=== PATIENT | female | born 2000 | race Hispanic/Latino ===

== ENCOUNTER 2022-12-12 08:35 | Emergency (ER) | payer OTHER ==
[~2022-12-12] VITALS: Ht 152.4 cm; Wt 65.8 kg
[2022-12-12 10:05] LABS: APPEARANCE,URINE CLEAR (CLEAR); BILIRUBIN,URINE NEGATIVE (NEGATIVE); COLOR,URINE LIGHT-YELLOW (YELLOW); GLUCOSE, URINE (UA) NEGATIVE (NEGATIVE); KETONES,URINE NEGATIVE (NEGATIVE); LEUKOCYTE ESTERASE ,URINE NEGATIVE Leu/uL (NEGATIVE); NITRATE,URINE NEGATIVE (NEGATIVE); OCCULT BLOOD,URINE NEGATIVE (NEGATIVE); PROTEIN,URINE NEGATIVE (NEGATIVE); UROBILINOGEN,URINE 0.2 mg/dL (0.2-1.0)
[2022-12-12] MEDS ORDERED: SODI50DR NS (10:19)
[2022-12-12 10:27] VITALS: BP 112/68
== END 2022-12-12 10:30 | disposition home or self-care (01) ==
LOC: EDH 08:35
DX: O98.511 Other viral diseases complicating pregnancy, first trimester (principal); B34.9 Viral infection, unspecified; Z3A.01 Less than 8 weeks gestation of pregnancy; Z20.822 Contact with and (suspected) exposure to COVID-19
CPT/HCPCS: 99283; 87635; 87804 ×2; 81003; C9803

== ENCOUNTER 2022-12-14 22:42 | Emergency (ER) | payer OTHER ==
[~2022-12-14] VITALS: Ht 152.4 cm; Wt 67.6 kg
[~2022-12-14 22:42] MED LIST: SODI50DR NS
[2022-12-14 23:54] LABS: BASOPHILS % (AUTO) 0.4 % (0.0-5.0); HEMATOCRIT 34.7 % (36-48); LYMPHOCYTES % (AUTO) 20.1 % (21.0-51.0); MEAN CORPUSCULAR HEMOGLOBIN 31.7 pg (27.0-33.0); MEAN CORPUSCULAR HGB CONC 33.7 g/dL (32.0-36.0); MONOCYTES % (AUTO) 7.7 % (3.0-13.0); NEUTROPHILS % (AUTO) 69.2 % (40.0-77.0); PLATELET COUNT (AUTO) 321 K/uL (130-400); RED BLOOD CELL COUNT(AUTO) 3.69 MIL/uL (4.00-5.50); RED CELL DISTRIBUTION WIDTH 12.7 % (11.0-15.5); WHITE BLOOD COUNT (AUTO) 11.5 K/uL (4.8-10.8)
[2022-12-15 00:13] LABS: CREATININE 0.7 mg/dL (0.5-1.5); POTASSIUM 3.8 mmol/L (3.5-5.1)
[2022-12-15 00:39] LABS: ALBUMIN 3.6 g/dL (3.5-5.0)
[2022-12-15 01:01] LABS: BILIRUBIN,URINE NEGATIVE (NEGATIVE); COLOR,URINE LIGHT-YELLOW (YELLOW); GLUCOSE, URINE (UA) NEGATIVE (NEGATIVE); KETONES,URINE NEGATIVE (NEGATIVE); LEUKOCYTE ESTERASE ,URINE 75 Leu/uL (NEGATIVE); NITRATE,URINE NEGATIVE (NEGATIVE); OCCULT BLOOD,URINE MODERATE (NEGATIVE); PROTEIN,URINE 20 mg/dL (NEGATIVE); UROBILINOGEN,URINE 0.2 mg/dL (0.2-1.0)
[2022-12-15] MEDS ORDERED: METO5 PO (01:01)
[2022-12-15] MEDS ORDERED: CEPH500C2 PO (01:01)
[2022-12-15 01:05] LABS: APPEARANCE,URINE CLOUDY (CLEAR)
[2022-12-15 01:08] LABS: BACTERIA,URINE RARE /HPF (None Seen); RBC,URINE 51-100 /HPF (0-1); SQUAMOUS EPITHELIAL CELL,UR RARE /HPF (0-2); WBC,URINE 26-50 /HPF (0-1)
[2022-12-15] MEDS ORDERED: CEPHALEXIN 500 MG CAPSULE PO ONE (02:00)
[2022-12-15 03:18] VITALS: BP 117/73
== END 2022-12-15 03:19 | disposition home or self-care (01) ==
LOC: EDH 22:42
DX: O20.0 Threatened abortion (principal); O23.41 Unspecified infection of urinary tract in pregnancy, first trimester; N39.0 Urinary tract infection, site not specified; Z79.899 Other long term (current) drug therapy; Z3A.01 Less than 8 weeks gestation of pregnancy
CPT/HCPCS: 36415; 76801; 80053; 81001; 81025; 84702; 85025; 86850; 86900; 86901; 87077; 87088; 87186

== ENCOUNTER 2024-11-27 10:07 | Emergency (ER) | payer SELFPAY ==
[~2024-11-27] VITALS: Ht 152.4 cm; Wt 82.6 kg
[~2024-11-27 10:07] MED LIST changes: +CEPH500C2 PO; +METO5 PO
--- NOTE | 2024-11-27 10:14 | ERN ---
ED Note History of Present Illness Stated Complaint: PELVIC PAIN, 7 WEEKS GESTATION Chief Complaint: Pelvic Pain Time Seen by MD: 10:09 Dictation: PATIENT IS A 24-YEAR-OLD FEMALE COMING IN TODAY COMPLAINING OF BE AN SEVEN WEEKS . SHE STATES YESTERDAY AFTERNOON SHE WAS HAVING SOME SPOTTING WITH SOME PELVIC CRAMPING. SHE STATES THAT HAS NOT RESOLVED HOWEVER SHE HAS NOT HAD HER 1ST VISIT AND ULTRASOUND WITH YOVANNY ALVARADO. SHE IS ON VITAMINS. . SHE STATES SHE CURRENTLY IS NOT BLEEDING AT THIS TIME Allergies: Coded Allergies: No Known Drug Allergies (Unverified Allergy, Unknown, 12/12/22) Home Meds Active Scripts Metoclopramide HCl (Reglan) 5 Mg Tab, 5 MG PO TID for 5 Days, #15 TAB Prov:KAYLEE COX 12/15/22 Cephalexin (Cephalexin) 500 Mg Capsule, 500 MG PO TID for 10 Days, #30 CAP Prov:KAYLEE COX 12/15/22 Sodium Chloride (Termo Saline) 50 Ml Drops, 50 ML NS TID for 14 Days, #60 DROP Prov:DAVID FARR MD 12/12/22 Past Medical History Past Medical History: No Pertinent History Surgical History: None : 2 Para: 1 Aborts: 0 RN Note Reviewed/Agreed w/PFSH: Yes Review of System Dictation CONSTITUTIONAL: NEGATIVE EXCEPT FOR HPI HEAD/FACE: NEGATIVE EXCEPT FOR HPI EENT: NEGATIVE EXCEPT FOR HPI RESPIRATORY: NEGATIVE EXCEPT FOR HPI GASTROINTESTINAL/ABDOMINAL: NEGATIVE EXCEPT FOR HPI GENITOURINARY: NEGATIVE EXCEPT FOR HPI MILD PELVIC PAIN MUSCULOSKELETAL: NEGATIVE EXCEPT FOR HPI INTEGUMENTARY: NEGATIVE EXCEPT FOR HPI NEUROLOGICAL/PSYCH: NEGATIVE EXCEPT FOR HPI HEMATOLOGIC/LYMPHATIC: NEGATIVE EXCEPT FOR HPI ALL SYSTEMS NEGATIVE, EXCEPT NOTED ABOVE. 13 POINT REVIEW OF SYSTEMS ASSESSED AND ALL NEGATIVE EXCEPT FOR ABOVE. Initial Vital Sign VS Vital Signs Date Time Temp Pulse Resp B/P (MAP) Pulse Ox O2 Delivery O2 Flow Rate FiO2 11/27/24 10:08 98.6 75 16 121/72 99 Room Air 11/27/24 12:02 0 21 Physical Exam Dictation VITAL SIGNS REVIEWED GENERAL APPEARANCE: ALERT, ORIENTED X 3, NO ACUTE DISTRESS, WELL DEVELOPED, NOURISHED. HEAD AND FACE: NON-TRAUMATIC. EYES: PERRL, PINK CONJUNCTIVAS, EYELID NO TRAUMA, ANTERIOR CHAMBER WITH ARCUS SENILIS. EARS: PINNAS INTACT AND NO SIGNS OF TRAUMA OR ERYTHEMA EAR CANALS CLEAR AND NO DISCHARGE TM NO ERYTHEMA NOSE: NO DISCHARGE, NO BLEEDING. OROPHARYNX: MOUTH NORMAL, TONGUE PINK, PHARYNX CLEAR,NO ERYTHEMA, TONSILS NO EXUDATES, NO ABSCESSES NOTED, MUCOUS MEMBRANE MOIST NECK: SUPPLE, NON-TENDER, NO THYROMEGALY, NO MASSES, NO JVD, NO BRUITS BREAST:DEFERRED CHEST:NO TENDERNESS, NO CREPITUS, NO PARADOXICAL MOVEMENT, NO RETRACTIONS LUNGS:CLEAR, WELL-VENTILATED, SYMMETRIC, NO RALES, NO WHEEZING, NO RHONCHI, NO STRIDOR, GOOD BREATH SOUNDS BILATERALLY HEART: REGULAR RATE, REGULAR RHYTHM, NO MURMUR, NO GALLOPS VASCULAR: NO PERIPHERAL EDEMA, ABDOMEN: SOFT, POSITIVE BOWEL SOUNDS, NONDISTENDED, NO GUARDING, NONTENDER, NO REBOUND, NO MASSES NO HEPATOMEGALY, NO SPLENOMEGALY, NO LAKHANI'S SIGN, NO HERNIAS. RECTAL: DEFERRED GENITAL: DEFERRED NEUROLOGICAL: NORMAL SPEECH, MOTOR FUNCTION INTACT, SENSORY FUNCTION INTACT MUSCULOSKELETAL: NECK NONTENDER, FULL RANGE OF MOTION, BACK NONTENDER, FULL RANGE OF MOTION, EXTREMITIES: NONTENDER, FULL RANGE OF MOTION SKIN: COLOR PINK, DRY, NO TURGOR, NO RASH, NO LACERATIONS, NO ABRASIONS, NO CONTUSIONS. LYMPHATIC: DEFERRED Results (Laboratory/Radiology) Laboratory/Radiology Laboratory Tests Test 11/27/24 11:16 11/27/24 12:40 White Blood Count 6.7 K/uL (4.8-10.8) Red Blood Count 4.21 MIL/uL (4.00-5.50) Hemoglobin 12.9 g/dL (12.0-16.0) Hematocrit 39.1 % (36-48) Mean Corpuscular Volume 92.9 fL (79-99) Mean Corpuscular Hemoglobin 30.6 pg (27.0-33.0) Mean Corpuscular Hemoglobin Concent 33.0 g/dL (32.0-36.0) Red Cell Distribution Width 13.7 % (11.0-15.5) Platelet Count 359 K/uL (130-400) Mean Platelet Volume 10.0 fL (7.5-10.5) Immature Granulocyte % (Auto) 1.0 % (0-1) Neutrophils (%) (Auto) 64.9 % (40.0-77.0) Lymphocytes (%) (Auto) 25.1 % (21.0-51.0) Monocytes (%) (Auto) 6.5 % (3.0-13.0) Eosinophils (%) (Auto) 2.1 % (0.0-8.0) Basophils (%) (Auto) 0.4 % (0.0-5.0) Neutrophils # (Auto) 4.4 K/uL (1.8-7.7) Lymphocytes # (Auto) 1.7 K/uL (1.0-4.8) Monocytes # (Auto) 0.4 K/uL (0.1-1.0) Eosinophils # (Auto) 0.14 K/uL (0.00-0.70) Basophils # (Auto) 0.03 K/uL (0.00-0.20) Absolute Immature Granulocyte (auto 0.07 K/uL (0-1) Nucleated Red Blood Cells 0.0 % (0.0-0.19) Sodium Level 139 mmol/L (136-145) Potassium Level 3.8 mmol/L (3.5-5.1) Chloride Level 105 mmol/L (101-111) Carbon Dioxide Level 29 mmol/L (21-32) Blood Urea Nitrogen 8 mg/dL (7-18) Creatinine 0.4 mg/dL (0.5-1.0) L Glomerular Filtration Rate Calc 140 mL/min (>90) Random Glucose 97 mg/dL (70-105) Total Calcium 8.6 mg/dL (8.5-10.1) Human Chorionic Gonadotropin, Quant 80354 mIU/mL (0-5) H Urine Color YELLOW (YELLOW) Urine Appearance CLOUDY (CLEAR) H Urine pH 8.0 (5.0-8.0) Urine Specific [place] 1.027 (1.001-1.031) Urine Protein 30 mg/dL (NEGATIVE) H Urine Glucose (UA) NEGATIVE mg/dL (NEGATIVE) Urine Ketones NEGATIVE mg/dL (NEGATIVE) Urine Occult Blood NEGATIVE (NEGATIVE) Urine Nitrate NEGATIVE (NEGATIVE) Urine Bilirubin NEGATIVE mg/dL (NEGATIVE) Urine Urobilinogen 0.2 mg/dL (0.2-1.0) Urine Leukocyte Esterase 500 Zia/uL (NEGATIVE) H Urine RBC 2-5 /HPF (0-1) H Urine WBC 26-50 /HPF (0-1) H Urine Squamous Epithelial Cells MANY /HPF (0-2) Urine Bacteria FEW /HPF (None Seen) Exam Type: US OB <14 WEEKS Clinical Information: VAGINAL BLEEDING Comparison: None FINDINGS: There is an intrauterine gestational sac. Gestational sac diameter is 0.80 cm , corresponds to 5 weeks 4 days. No embryonic pole or yolk sac seen at this time. The uterus is anteverted with normal shape. It measures 9.4 x 5 x 6 cm in its maximum length, anteroposterior and transverse dimensions. The myometrium is homogeneous and there is no evidence of focal or diffuse lesions. Both ovaries appear normal with normal flow on color and Spectral Doppler. The right ovary measures 3.6 x 1.8 x 2 cm and the left ovary measures 2.7 x 1.7 x 2.1 cm. No adnexal masses. No free fluid or collections. Urinary bladder appears normal. IMPRESSION: Intrauterine gestational sac, with diameter corresponding to a gestational age of 5 weeks 4 days. No embryonic pole or yolk sac seen at this time. Consider short-term follow-up to confirm viability. Labs Reviewed?: Yes ED Course ED Course Orders Procedure Category Date Status Time Cbc With Differential LAB 11/27/24 Complete 10:11 Hcg,Quantitative LAB 11/27/24 Complete 10:11 Us Ob <14 Weeks US 11/27/24 Resulted 10:11 Type And Screen BBK 11/27/24 Complete 10:11 Basic Metabolic Panel LAB 11/27/24 Complete 10:11 Urinalysis Profile LAB 11/27/24 Complete 10:11 Culture Urine KRISTEN 11/27/24 Logged 12:58 Vital Signs Date Time Temp Pulse Resp B/P (MAP) Pulse Ox O2 Delivery O2 Flow Rate FiO2 11/27/24 12:02 98.4 72 16 120/71 99 Room Air* 0 21 11/27/24 10:08 98.6 75 16 121/72 99 Room Air 1400/PATIENT DISCHARGED HOME WITH EARLY , URINARY TRACT INFECTION. SHE WAS MADE AWARE TO CONTINUE VITAMINS, SEE HER SUPERVISOR VENEER DOCTOR IN THE NEXT 1-2 DAYS AND TAKE ANTIBIOTICS DIRECTED UNTIL GONE. NO [id number] MEDICATIONS EXCEPT FOR TYLENOL. Medical Decision Making MDM MEDICAL DISCHARGE MAKING BASED ON BASIC LABS FOR EARLY TO INCLUDE ULTRASOUND. NO SAC SEEN AT THIS TIME ON ULTRASOUND PATIENT HAS A ACUTE CYSTITIS WITH HEMATURIA DISCHARGED HOME WITH MACRODANTIN AND INSTRUCTIONS TO TAKE TYLENOL ONLY. WATER FOR FLUIDS ONLY UNTIL SHE SEES HER SUPERVISOR VENEER DOCTOR DX & DISP Disposition: Discharge Departure Impression: Primary Impression: UTI in Condition: Stable Scripts Nitrofurantoin/Nitrofuran Mac (Macrobid) 100 Mg Cap 1 CAP PO BID for 7 Days, #14 CAP 0 Refills Prov: RUY BEDOLLA NP 11/27/24 Additional Instructions: FOLLOW-UP WITH PRIMARY CARE PROVIDER IN 1 TO 2 DAYS. TAKE MEDICATIONS DIRECTED HERE IN THE EMERGENCY ROOM. OKAY TO CONTINUE HOME MEDICATIONS UNLESS OTHERWISE DISCUSSED DURING YOUR VISIT IN THE EMERGENCY ROOM TODAY. RETURN TO YOUR NEAREST EMERGENCY ROOM IF SYMPTOMS WORSEN OR IF THERE IS NO IMPROVEMENT. CALL 911 IF YOU NEED IMMEDIATE ASSISTANCE. TAKE TYLENOL [id number] NEEDED AND IF NO CONTRAINDICATIONS ARE PRESENT. INCREASE ORAL HYDRATION. A WOUND CULTURE OR URINE CULTURE WAS ORDERED HERE IN THE EMERGENCY ROOM DEPARTMENT PLEASE FOLLOW-UP WITH PRIMARY CARE PROVIDER AND ADVISE THEM TO GET REPEAT PORTS FROM OUR FACILITY. IF YOU HAD ANY NIDHI WRAP/SPLINTS THAT WERE APPLIED HERE, PLEASE DO NOT REMOVE THEM UNTIL YOU SEE YOUR PRIMARY CARE OR SPECIALTY. PELVIC REST AND NO SEX UNTIL CLEARED BY YOUR SUPERVISOR VENEER DOCTOR. SEE HIM TOMORROW FOR FOLLOW UP. TAKE ANTIBIOTICS DIRECTED UNTIL COMPLETE. Referrals: SELF,REFERRAL (PCP) Time of Disposition: 14:00 I have reviewed the case, and I agree with, Diagnosis and Plan RUY BEDOLLA NP Nov 27, 2024 10:14
--- NOTE | 2024-11-27 10:51 | HMCIMG ---
Exam Type: US OB <14 WEEKS Clinical Information: VAGINAL BLEEDING Comparison: None FINDINGS: There is an intrauterine gestational sac. Gestational sac diameter is 0.80 cm , corresponds to 5 weeks 4 days. No embryonic pole or yolk sac seen at this time. The uterus is anteverted with normal shape. It measures 9.4 x 5 x 6 cm in its maximum length, anteroposterior and transverse dimensions. The myometrium is homogeneous and there is no evidence of focal or diffuse lesions. Both ovaries appear normal with normal flow on color and Spectral Doppler. The right ovary measures 3.6 x 1.8 x 2 cm and the left ovary measures 2.7 x 1.7 x 2.1 cm. No adnexal masses. No free fluid or collections. Urinary bladder appears normal. IMPRESSION: Intrauterine gestational sac, with diameter corresponding to a gestational age of 5 weeks 4 days. No embryonic pole or yolk sac seen at this time. Consider short-term follow-up to confirm viability.
[2024-11-27 11:31] LABS: BASOPHILS # (AUTO) 0.03 K/uL (0.00-0.20); BASOPHILS % (AUTO) 0.4 % (0.0-5.0); EOSINOPHILS # (AUTO) 0.14 K/uL (0.00-0.70); EOSINOPHILS % (AUTO) 2.1 % (0.0-8.0); HEMATOCRIT 39.1 % (36-48); IMMATURE GRANULOCYTE ABSOLUTE 0.07 K/uL (0-1); LYMPHOCYTES # (AUTO) 1.7 K/uL (1.0-4.8); LYMPHOCYTES % (AUTO) 25.1 % (21.0-51.0); MEAN CORPUSCULAR HEMOGLOBIN 30.6 pg (27.0-33.0); MEAN CORPUSCULAR VOLUME 92.9 fL (79-99); MONOCYTES # (AUTO) 0.4 K/uL (0.1-1.0); MONOCYTES % (AUTO) 6.5 % (3.0-13.0); NEUTROPHILS # (AUTO) 4.4 K/uL (1.8-7.7); NEUTROPHILS % (AUTO) 64.9 % (40.0-77.0); PLATELET COUNT (AUTO) 359 K/uL (130-400); RED BLOOD CELL COUNT(AUTO) 4.21 MIL/uL (4.00-5.50); RED CELL DISTRIBUTION WIDTH 13.7 % (11.0-15.5); WHITE BLOOD COUNT (AUTO) 6.7 K/uL (4.8-10.8)
[2024-11-27 11:55] LABS: CREATININE 0.4 mg/dL (0.5-1.0); POTASSIUM 3.8 mmol/L (3.5-5.1)
[2024-11-27 12:56] LABS: APPEARANCE,URINE CLOUDY (CLEAR); BILIRUBIN,URINE NEGATIVE (NEGATIVE); COLOR,URINE YELLOW (YELLOW); GLUCOSE, URINE (UA) NEGATIVE (NEGATIVE); KETONES,URINE NEGATIVE (NEGATIVE); LEUKOCYTE ESTERASE ,URINE 500 Leu/uL (NEGATIVE); NITRATE,URINE NEGATIVE (NEGATIVE); OCCULT BLOOD,URINE NEGATIVE (NEGATIVE); PROTEIN,URINE 30 mg/dL (NEGATIVE); UROBILINOGEN,URINE 0.2 mg/dL (0.2-1.0)
[2024-11-27 12:58] LABS: ADD UA MICROSCOPIC YES
[2024-11-27 13:01] LABS: BACTERIA,URINE FEW /HPF (None Seen); MUCUS,URINE RARE LPF (None Seen); SQUAMOUS EPITHELIAL CELL,UR MANY /HPF (0-2); WBC,URINE 26-50 /HPF (0-1)
[2024-11-27] MEDS ORDERED: MACR100 PO (14:01)
[2024-11-27 14:19] VITALS: BP 120/71; PULSE 72; RESP 16; TEMP 98.3; O2SAT 98
== END 2024-11-27 14:25 | disposition home or self-care (01) ==
LOC: EDH 10:07 → EEVIPCON 10:07 → EDH 14:25
DX: O23.41 Unspecified infection of urinary tract in pregnancy, first trimester (principal); N39.0 Urinary tract infection, site not specified; Z3A.01 Less than 8 weeks gestation of pregnancy; Z79.899 Other long term (current) drug therapy
CPT/HCPCS: 36415; 76801; 80048; 81001; 84702; 85025; 86850; 86900; 86901; 87086; 99284

== ENCOUNTER 2024-11-30 08:46 | Emergency (ER) | payer SELFPAY ==
[~2024-11-30] VITALS: Ht 152.4 cm; Wt 82.6 kg
[~2024-11-30 08:46] MED LIST changes: +MACR100 PO
--- NOTE | 2024-11-30 08:55 | ERN ---
General Chief Complaint: Vaginal Bleeding Stated Complaint: REOCCURING VAGINAL BLEEDING IN Time Seen by MD: 08:49 History of Present Illness Initial Comments Otherwise healthy , 6 weeks per LMP, presents for vaginal bleeding. Patient was here a few days ago with some spotting. She reports that the spotting stops at this morning she continues with some bleeding. She reports some cramping similar to a menstrual cycle. Denies any significant pain. No vomiting. No urinary symptoms. Denies other medical or surgical history. Has not established with an OBGYN yet. Allergies: Coded Allergies: No Known Drug Allergies (Unverified Allergy, Unknown, 12/12/22) Home Meds Active Scripts Nitrofurantoin/Nitrofuran Mac (Macrobid) 100 Mg Cap, 1 CAP PO BID for 7 Days, #14 CAP 0 Refills Prov:RUY BEDOLLA NP 11/27/24 Metoclopramide HCl (Reglan) 5 Mg Tab, 5 MG PO TID for 5 Days, #15 TAB Prov:KAYLEE COX 12/15/22 Cephalexin (Cephalexin) 500 Mg Capsule, 500 MG PO TID for 10 Days, #30 CAP Prov:KAYLEE COX 12/15/22 Sodium Chloride (Rohwer Saline) 50 Ml Drops, 50 ML NS TID for 14 Days, #60 DROP Prov:DAVID FARR MD 12/12/22 Past Medical History Past Medical History: No Pertinent History Past Surgical History: None Female( History) : 2 Para: 1 Aborts: 0 ROS Dictation CONSTITUTIONAL: No chills, no fever, no weakness, no diaphoresis, no malaise. HEAD/FACE: No signs of trauma. EENT: No eye pain, no blurred vision, no tearing, no double vision, no ear pain, no ear discharge, no nose pain, no nasal congestion, no throat pain, no throat swelling, no mouth pain. RESPIRATORY: No cough, no orthopnea, no SOB, no stridor, no wheezing. CARDIOVASCULAR: No chest pain, no edema, no palpitations, no syncope. GASTROINTESTINAL/ABDOMINAL: No abdominal pain, no constipation, no diarrhea, no nausea, no vomiting. GENITOURINARY: Vaginal bleeding and pelvic cramping MUSCULOSKELETAL: No back pain, no gout, no joint pain, no joint swelling, no muscle pain, no muscle stiffness, no neck pain. INTEGUMENTARY: No change in color, no change in hair/nails, no dryness, no lesion, no lumps, no rash. NEUROLOGICAL/PSYCH: No anxiety, not depressed, no emotional problem, no headache, no numbness, no pre-existing deficit, no history of seizures, no tremors, no weakness. HEMATOLOGIC/LYMPHATIC: Not anemic, no history of blood clots, no apparent bleed ing, no bruising, glands not swollen. All Systems Negative, Except as Noted. Physical Exam Physical Exam Dictation VITAL SIGNS: Reviewed. GENERAL APPEARANCE: Alert, oriented x3, no acute distress. HEAD AND FACE: Non-traumatic. EYES: PERRL, pink conjunctivas, eyelid no trauma, anterior chamber clear. EARS: Pinnas intact and no signs of trauma or erythema. Ear canals clear and no discharge. TMs no erythema. NOSE: No discharge, no bleeding. OROPHARYNX: Mouth normal, teeth no caries, tongue pink. Pharynx clear, no erythema. Tonsils no exudates, no abscesses noted. Mucous membrane moist. NECK: Supple, non-tender, no thyromegaly, no masses, no JVD, no bruits. BREAST: Deferred. CHEST: No tenderness, no crepitus, no paradoxical movement, no retractions. LUNGS: Clear, well-ventilated, symmetric, no rales, no wheezing, no rhonchi, no stridor, good breath sounds bilaterally. HEART: Regular rate, regular rhythm, no murmur, no gallops. VASCULAR: No peripheral edema. ABDOMEN: Soft, positive bowel sounds, nondistended, no guarding, nontender, no rebound, no masses no hepatomegaly, no splenomegaly, no Ty's sign, no hernias. RECTAL: Deferred. GENITAL: Deferred. NEUROLOGICAL: Normal speech, gross motor function intact, gross sensory function intact. MUSCULOSKELETAL: Neck nontender, full range of motion, back nontender, full range of motion. EXTREMITIES: Nontender, full range of motion. SKIN: Color pink, dry, no turgor, no rash, no lacerations, no abrasions, no contusions. LYMPHATICS: Deferred. Results Laboratory and Microbiology Lab and Micro Result Laboratory Tests Test 11/30/24 09:00 White Blood Count 7.9 K/uL (4.8-10.8) Red Blood Count 4.06 MIL/uL (4.00-5.50) Hemoglobin 12.3 g/dL (12.0-16.0) Hematocrit 37.2 % (36-48) Mean Corpuscular Volume 91.6 fL (79-99) Mean Corpuscular Hemoglobin 30.3 pg (27.0-33.0) Mean Corpuscular Hemoglobin Concent 33.1 g/dL (32.0-36.0) Red Cell Distribution Width 13.7 % (11.0-15.5) Platelet Count 343 K/uL (130-400) Mean Platelet Volume 10.5 fL (7.5-10.5) Immature Granulocyte % (Auto) 1.1 % (0-1) H Neutrophils (%) (Auto) 65.1 % (40.0-77.0) Lymphocytes (%) (Auto) 22.0 % (21.0-51.0) Monocytes (%) (Auto) 8.4 % (3.0-13.0) Eosinophils (%) (Auto) 2.9 % (0.0-8.0) Basophils (%) (Auto) 0.5 % (0.0-5.0) Neutrophils # (Auto) 5.1 K/uL (1.8-7.7) Lymphocytes # (Auto) 1.7 K/uL (1.0-4.8) Monocytes # (Auto) 0.7 K/uL (0.1-1.0) Eosinophils # (Auto) 0.23 K/uL (0.00-0.70) Basophils # (Auto) 0.04 K/uL (0.00-0.20) Absolute Immature Granulocyte (auto 0.09 K/uL (0-1) Nucleated Red Blood Cells 0.0 % (0.0-0.19) Sodium Level 138 mmol/L (136-145) Potassium Level 4.9 mmol/L (3.5-5.1) Chloride Level 105 mmol/L (101-111) Carbon Dioxide Level 28 mmol/L (21-32) Blood Urea Nitrogen 10 mg/dL (7-18) Creatinine 0.3 mg/dL (0.5-1.0) L Glomerular Filtration Rate Calc 150 mL/min (>90) Random Glucose 95 mg/dL (70-105) Total Calcium 8.7 mg/dL (8.5-10.1) MDM CC: Vaginal bleeding early Historian: Patient Comorbidities: None Limitations by social determinants of health: uninsured Ddx: ectopic vs miscarriage versus bleeding in early Vital signs: Stable, remained stable in the ER External chart review: On 11/27/2024 [place] [address]. There was an ultrasound with an intrauterine gestational sac dated five weeks and four days. No embryonic pole or yolk sac seen at that time. Ultrasound ultrasound OB (independently interpreted by me ): Gestational sac five weeks three days. No free fluid. Small subchorionic hemorrhage. No pole yolk sac yet. Labs (independently interpreted by me ): CBC and BMP unremarkable. Plan: We will DC to outpatient OBGYN follow up. Patient has a an appointment scheduled for nine days from now. Very low suspicion for ectopic in her life threats at this time. ED Course Orders Procedure Category Date Status Time Cbc With Differential LAB 11/30/24 Complete 08:49 Testing, LAB 11/30/24 In Process Serum Hcg 08:49 Basic Metabolic Panel LAB 11/30/24 Complete 08:49 Us Ob <14 Weeks US 11/30/24 Resulted 08:49 Vital Signs Date Time Temp Pulse Resp B/P (MAP) Pulse Ox O2 Delivery O2 Flow Rate FiO2 11/30/24 10:27 98.6 68 18 117/69 100 Room Air* 0 21 11/30/24 09:09 98.1 74 18 119/65 99 Room Air* 0 21 11/30/24 08:47 97.9 90 18 130/89 97 0 DX & DISP Disposition: Discharge Departure Impression: Primary Impression: Bleeding in early Condition: Stable Additional Instructions: The ultrasound shows an intrauterine sac dated 5 weeks 3 days. There is no yolk sac or pole. There is a small subchorionic bleed. Your labwork (CBC, BMP) is unremarkable. This finding may be consistent with an early or a threatened miscarriage. Follow up with an OBGYN doctor within the next 1-2 weeks. Return to the emergency department as needed. Referrals: NONE (PCP) VANI BONILLA DO Nov 30, 2024 08:55
[2024-11-30 09:36] LABS: BASOPHILS # (AUTO) 0.04 K/uL (0.00-0.20); BASOPHILS % (AUTO) 0.5 % (0.0-5.0); EOSINOPHILS # (AUTO) 0.23 K/uL (0.00-0.70); EOSINOPHILS % (AUTO) 2.9 % (0.0-8.0); HEMATOCRIT 37.2 % (36-48); IMMATURE GRANULOCYTE ABSOLUTE 0.09 K/uL (0-1); LYMPHOCYTES # (AUTO) 1.7 K/uL (1.0-4.8); MEAN CORPUSCULAR HEMOGLOBIN 30.3 pg (27.0-33.0); MEAN CORPUSCULAR HGB CONC 33.1 g/dL (32.0-36.0); MEAN CORPUSCULAR VOLUME 91.6 fL (79-99); MONOCYTES # (AUTO) 0.7 K/uL (0.1-1.0); MONOCYTES % (AUTO) 8.4 % (3.0-13.0); NEUTROPHILS # (AUTO) 5.1 K/uL (1.8-7.7); NEUTROPHILS % (AUTO) 65.1 % (40.0-77.0); PLATELET COUNT (AUTO) 343 K/uL (130-400); RED BLOOD CELL COUNT(AUTO) 4.06 MIL/uL (4.00-5.50); RED CELL DISTRIBUTION WIDTH 13.7 % (11.0-15.5); WHITE BLOOD COUNT (AUTO) 7.9 K/uL (4.8-10.8)
[2024-11-30 09:39] LABS: CREATININE 0.3 mg/dL (0.5-1.0); POTASSIUM 4.9 mmol/L (3.5-5.1)
--- NOTE | 2024-11-30 10:06 | HMCIMG ---
Exam Type: US OB <14 WEEKS Clinical Information: R/O ECTOPIC Comparison: None FINDINGS: There is an intrauterine gestational sac. Gestational sac diameter is 1.83 cm , corresponds to 5 weeks 3 days. No embryonic pole or yolk sac seen at this time. Small subchorionic bleed identified. The uterus is anteverted with normal shape. It measures 10.5 x 4.7 x 6.2 cm in its maximum length, anteroposterior and transverse dimensions. The myometrium is homogeneous and there is no evidence of focal or diffuse lesions. Both ovaries appear normal with normal flow on color and Spectral Doppler. No adnexal masses. No free fluid or collections. Urinary bladder appears normal. IMPRESSION: Intrauterine gestational sac, with diameter corresponding to a gestational age of 5 weeks 3 days. No embryonic pole or yolk sac seen at this time. Small subchorionic bleed. Consider short-term follow-up to confirm viability.
[2024-11-30 10:27] VITALS: BP 117/69; PULSE 68; RESP 18; TEMP 98.6; O2SAT 100
== END 2024-11-30 10:29 | disposition home or self-care (01) ==
LOC: EDH 08:46
DX: O20.8 Other hemorrhage in early pregnancy (principal); Z3A.01 Less than 8 weeks gestation of pregnancy; Z79.899 Other long term (current) drug therapy
CPT/HCPCS: 36415; 76801; 80048; 84703; 85025; 99284